=== PATIENT | female | born 1945 | race Caucasian/White ===

== ENCOUNTER 2022-02-12 07:58 | Inpatient (IN) | payer MEDICARE ==
[~2022-02-12] VITALS: Ht 162.6 cm; Wt 57.0 kg
[2022-02-12 08:40] LABS: BASO # 0.1 x10^3/uL (0.0-0.2); BASO % 1 % (0-3); EOS # 0.1 x10^3/uL (0.0-0.7); EOS % 1 % (0-3); HEMATOCRIT 44.5 % (36.0-47.0); HEMOGLOBIN 15.4 g/dL (12.0-15.5); LYMPH # 2.8 x10^3/uL (1.0-4.8); LYMPH % 29 % (24-48); MEAN CORPUSCULAR HEMOGLOBIN 32 pg (25-35); MEAN CORPUSCULAR HGB CONC 35 g/dL (31-37); MEAN CORPUSCULAR VOLUME 93 fL (79-100); MONO # 0.9 x10^3/uL (0.0-1.1); MONO % 9 % (0-9); NEUT % 61 % (31-73); PLATELET COUNT 284 x10^3/uL (140-400); RED BLOOD COUNT 4.77 x10^6/uL (3.50-5.40); RED CELL DISTRIBUTION WIDTH 13.7 % (11.5-14.5); WHITE BLOOD COUNT 9.8 x10^3/uL (4.0-11.0)
[2022-02-12 08:53] LABS: CALCIUM 9.6 mg/dL (8.5-10.1); CREATININE 0.9 mg/dL (0.6-1.0); GFR 60.9; POTASSIUM 3.3 mmol/L (3.5-5.1)
--- NOTE | 2022-02-12 08:56 | RAD ---
CT HEAD/BRAIN WO Date: 02/12/2022 8:30 AM Clinical Indication: left eye pain, transient vision loss Comparison: None. Technique: 5 mm axial tomographic images were obtained of the head without contrast. These were view ed on brain and bone windows. One or more of the following dose reduction techniques were utilized: A utomated exposure control (AEC), Adjustment of mA and/or kV according to patient size, Use of iterati ve reconstruction technique such as ASiR, CT scan done according to ALARA and image gently/image millan ly Findings: Moderate frontal lobe predominant cerebral volume loss. Mild nonspecific periventricular hypoattenuat ion, most commonly seen with chronic small vessel ischemic disease. Calcified atherosclerosis of the bilateral cavernous and paraclinoid internal carotid arteries and intracranial vertebral arteries. No intra- or extra-axial mass or fluid collection. No acute hemorrhage. The ventricles are normal in size, shape, and morphology. The hart-white matter junction is normal. The subarachnoid cisterns are patent. Partial empty sella. The visualized paranasal sinuses are normal. The visualized portions of the orbits and globes are no rmal. The mastoid air cells are clear. The seam press operator topogram shows no lytic lesion or fracture. Impression: No acute intracranial process. Moderate cerebral volume loss. Mild chronic small vessel ischemic disease. Electronically signed by: Madi Savage MD (02/12/2022 8:54 AM) [facility]
[2022-02-12 08:59] LABS: ALBUMIN 3.7 g/dL (3.4-5.0); C-REACTIVE PROTEIN 0.8 mg/L (0-3.3); MAGNESIUM 2.2 mg/dL (1.8-2.4); TOTAL BILIRUBIN 0.6 mg/dL (0.2-1.0); TOTAL PROTEIN 7.4 g/dL (6.4-8.2)
--- NOTE | 2022-02-12 09:06 | RAD ---
AP chest. HISTORY: Weakness AP view was taken of the chest. There is no prior study for comparison. There is thoracolumbar scolio sis. There is right apical density which could be an infiltrate or nodule, correlation with an old st udy would be of benefit or CT. Heart is normal in size. There is no pleural effusion. IMPRESSION: 1. Right apical density. Close follow-up or CT recommended. Electronically signed by: Etienne Boudreaux MD (02/12/2022 9:03 AM) [id number]
[2022-02-12 09:09] LABS: CREATINE KINASE 63 U/L (26-192)
[2022-02-12 09:57] LABS: BACTERIA,URINE 0 /HPF (0-FEW); RBC,URINE OCC /HPF (0-2); WBC,URINE 0 /HPF (0-4)
[2022-02-12] MEDS ORDERED: POTASSIUM BICARB 20 MEQ EFFERVESCENT TABLET. PO ONE (11:00)
[2022-02-12] MEDS ORDERED: ASPIRIN ENTERIC COATED 325 MG TABLET.DR. PO ONE (11:00)
--- NOTE | 2022-02-12 11:19 | PHYS DOC ---
Past Medical History Past Medical History: Hypertension Past Surgical History: No Surgical History Smoking Status: Never Smoker Alcohol Use: None Drug Use: None General Adult EDM: Chief Complaint: WEAKNESS/GENERALIZED HPI: HPI: 76-year-old female presents via EMS with report of sudden pain behind her left eye with transient vision loss which soon returned. Patient reports occurred after she bent down to pick something up. Patient reports symptoms occurred approximately 30 minutes prior to arrival. Reports upon EMS arrival symptoms had resolved. Denies any head trauma. Denies use of blood thinners. Denies fever or chills. Patient also reports concerned that her blood pressure was sig nificantly elevated after this episode. Reports it continued to increase after she checked it multiple times in a row. Review of Systems: Review of Systems: Constitutional: Denies fever or chills Eyes: Denies redness; reports transient vision loss and pain to left eye HENT: Denies nasal congestion or sore throat Respiratory: Denies cough or shortness of breath Cardiovascular: Denies chest pain or palpitations GI: Denies abdominal pain, nausea, or vomiting : Denies dysuria or hematuria Musculoskeletal: Denies back pain or joint pain Integument: Denies rash or skin lesions Neurologic: Denies headache, focal weakness or sensory changes Complete systems were reviewed and found to be within normal limits, except as documented in this note. Heart Score: C/O Chest Pain: N/A Current Medications: Current Medications Medications (Trade) Dose Ordered Sig/Lashon Start Time Stop Time Status Last Admin Dose Admin Acetaminophen (Tylenol) 650 mg PRN Q4HRS PRN 02/12/22 11:00 02/13/22 10:59 Aspirin (Ecotrin) 325 mg 1X ONCE 02/12/22 11:00 02/12/22 11:08 DC Potassium Bicarbonate (Potassium Effervescent Tablet) 40 meq 1X ONCE 02/12/22 11:00 02/12/22 11:08 DC Allergies: Allergies: Allergies Coded Allergies Type Severity Reaction Last Updated Verified No Known Drug Allergies 02/12/22 No Physical Exam: PE: Constitutional: Well developed, well nourished, no acute distress, non-toxic appearance HENT: Normocephalic, atraumatic Eyes: PERRL, EOMI, conjunctiva normal, no discharge, no photophobia Neck: Normal range of motion, no tenderness, supple Lungs & Thorax: No respiratory distress, equal chest rise and fall Abdomen: Soft, no tenderness Skin: Warm, dry, no erythema, no rash Extremities: No tenderness, ROM intact, no edema Neurologic: Alert and oriented X 3, normal motor function, normal sensory function, no focal deficits noted Psychologic: Affect normal, judgment normal Current Patient Data: Labs: Laboratory Tests Test 02/12/22 08:15 02/12/22 08:18 02/12/22 09:30 Glucose (Fingerstick) 131 mg/dL (70-99) H White Blood Count 9.8 x10^3/uL (4.0-11.0) Red Blood Count 4.77 x10^6/uL (3.50-5.40) Hemoglobin 15.4 g/dL (12.0-15.5) Hematocrit 44.5 % (36.0-47.0) Mean Corpuscular Volume 93 fL (79-100) Mean Corpuscular Hemoglobin 32 pg (25-35) Mean Corpuscular Hemoglobin Concent 35 g/dL (31-37) Red Cell Distribution Width 13.7 % (11.5-14.5) Platelet Count 284 x10^3/uL (140-400) Neutrophils (%) (Auto) 61 % (31-73) Lymphocytes (%) (Auto) 29 % (24-48) Monocytes (%) (Auto) 9 % (0-9) Eosinophils (%) (Auto) 1 % (0-3) Basophils (%) (Auto) 1 % (0-3) Neutrophils # (Auto) 6.0 x10^3/uL (1.8-7.7) Lymphocytes # (Auto) 2.8 x10^3/uL (1.0-4.8) Monocytes # (Auto) 0.9 x10^3/uL (0.0-1.1) Eosinophils # (Auto) 0.1 x10^3/uL (0.0-0.7) Basophils # (Auto) 0.1 x10^3/uL (0.0-0.2) Erythrocyte Sedimentation Rate 10 (0-25) Sodium Level 144 mmol/L (136-145) Potassium Level 3.3 mmol/L (3.5-5.1) L Chloride Level 105 mmol/L (98-107) Carbon Dioxide Level 28 mmol/L (21-32) Anion Gap 11 (6-14) Blood Urea Nitrogen 11 mg/dL (7-20) Creatinine 0.9 mg/dL (0.6-1.0) Estimated GFR (Cockcroft-Gault) 60.9 BUN/Creatinine Ratio 12 (6-20) Glucose Level 128 mg/dL (70-99) H Calcium Level 9.6 mg/dL (8.5-10.1) Magnesium Level 2.2 mg/dL (1.8-2.4) Total Bilirubin 0.6 mg/dL (0.2-1.0) Aspartate Amino Transferase (AST) 39 U/L (15-37) H Alanine Aminotransferase (ALT) 33 U/L (14-59) Alkaline Phosphatase 116 U/L (46-116) Creatine Kinase 63 U/L (26-192) Creatine Kinase MB (Mass) 0.9 ng/mL (0.0-3.6) Creatine Kinase MB Relative Index % (0-4) Troponin I High Sensitivity 9 ng/L (4-50) C-Reactive Protein, Quantitative 0.8 mg/L (0-3.3) Total Protein 7.4 g/dL (6.4-8.2) Albumin 3.7 g/dL (3.4-5.0) Albumin/Globulin Ratio 1.0 (1.0-1.7) Urine Collection Type Unknown Urine Color (Auto) Colorless Urine Turbidity Clear Urine pH (Auto) 7.0 (<5.0-8.0) Urine Specific [place] 1.003 (1.000-1.030) Urine Protein (Auto) Negative mg/dL (Negative) Urine Glucose (Auto)(UA) Negative mg/dL (Negative) Urine Ketones (Auto) Negative mg/dL (Negative) Urine Blood (Auto) Negative (Negative) Urine Nitrite Negative (Negative) Urine Bilirubin (Auto) Negative (Negative) Urine Urobilinogen (Auto) Normal mg/dL (Normal) Urine Leukocyte Esterase (Auto) Small (Negative) Urine RBC Occ /HPF (0-2) Urine WBC 0 /HPF (0-4) Urine Squamous Epithelial Cells Few /LPF Urine Bacteria 0 /HPF (0-FEW) Laboratory Tests 02/12/22 08:18 Laboratory Tests 02/12/22 08:18 Vital Signs: Vital Signs Date Time Temp Pulse Resp B/P (MAP) Pulse Ox O2 Delivery O2 Flow Rate FiO2 02/12/22 08:43 86 14 165/72 (103) 96 02/12/22 08:00 97.7 Room Air 97.7 EKG: EKG: @0905 NSR at 72bpm, NO ST elevation, QRS 84ms, QT/QTc 406/446ms Radiology/Procedures: Radiology/Procedures: PROCEDURE: CT HEAD WO CONTRAST CT HEAD/BRAIN WO Date: 02/12/2022 8:30 AM Clinical Indication: left eye pain, transient vision loss Comparison: None. Technique: 5 mm axial tomographic images were obtained of the head without contrast. These were viewed on brain and bone windows. One or more of the following dose reduction techniques were utilized: Automated exposure control (AEC), Adjustment of mA and/or kV according to patient size, Use of iterative reconstruction technique such as ASiR, CT scan done according to ALARA and image gently/image wisely Findings: Moderate frontal lobe predominant cerebral volume loss. Mild nonspecific periventricular hypoattenuation, most commonly seen with chronic small vessel i schemic disease. Calcified atherosclerosis of the bilateral cavernous and paraclinoid internal carotid arteries and intracranial vertebral arteries. No intra- or extra-axial mass or fluid collection. No acute hemorrhage. The ventricles are normal in size, shape, and morphology. The hart-white matter junction is normal. The subarachnoid cisterns are patent. Partial empty sella. The visualized paranasal sinuses are normal. The visualized portions of the orbits and globes are normal. The mastoid air cells are clear. The search and rescue officer topogram shows no lytic lesion or fracture. Impression: No acute intracranial process. Moderate cerebral volume loss. Mild chronic small vessel ischemic disease. Electronically signed by: Ian Savage MD (02/12/2022 8:54 AM) [facility] PROCEDURE: PORTABLE CHEST 1V AP chest. HISTORY: Weakness AP view was taken of the chest. There is no prior study for comparison. There is thoracolumbar scoliosis. There is right apical density which could be an infiltrate or nodule, correlation with an old study would be of benefit or CT. Heart is normal in size. There is no pleural effusion. IMPRESSION: 1. Right apical density. Close follow-up or CT recommended. Electronically signed by: Etienne Boudreaux MD (02/12/2022 9:03 AM) [id number] Course & Med Decision Making: Course & Med Decision Making Pertinent Labs and Imaging studies reviewed. (See chart for details) Patient presents with report of sudden pain behind left eye with transient vision loss which quickly resolved. Patient also reported concern for elevated blood pressure after taking it multiple times in a row. Patient's blood pressure stable upon arrival. NIHSS 0 upon arrival. Labs obtained and posted to chart. Hyperkalemia addressed. Patient also given aspirin. Blood pressure significantly improved during ED visit without intervention. Blood pressure elevation at home likely more stress/anxiety- induced. CXR with right apical opacity concerning for pulmonary nodule. Radiology recommendation for follow-up CT imaging. Patient reports she is aware of this finding as it has been seen in past. Reports history of smoking. A copy of CXR provided to patient with instruction to discuss with her doctor regarding future re-evaluation. Patient and family also request COVID testing. Reports nephew with positive test approximately 4 weeks ago. Rapid COVID and Influenza negative. Discussed admission versus close outpatient follow-up with patient and family. Decision given long family and patient opted for admission for further evaluation and treatment. Discussed with Dr. Lopez (PCP) who is in agreement with admission. Consult placed to Dr. Ray (neurology). Discussed findings and plan with patient and family, who acknowledge understanding and agreement. Marek Disclaimer: Marek Disclaimer: This electronic medical record was generated, in whole or in part, using a voice recognition dictation system. Departure Departure Impression: Primary Impression: TIA (transient ischemic attack) Additional Impressions: Abnormal chest x-ray Hypokalemia Disposition: ADMITTED INPATIENT Admitting Physician: Ian Lopez Condition: STABLE Referrals: IAN LOPEZ MD (PCP) NIHSS Stroke Scale NIH Stroke Scale: NIH Stroke Scale Response (Comments) Value Level of Consciousness: 0 Alert/Responsive 0 LOC Questions: 0 Answers both correctly 0 LOC Commands: 0 Performs both tasks 0 Best Gaze: 0 Normal 0 Visual: 0 No visual loss 0 Facial Palsy: 0 Normal, symmetrical 0 Motor - Left Arm 0 No drift 0 Motor - Right Arm 0 No drift 0 Motor - Left Leg 0 No drift 0 Motor: Right Leg 0 No drift 0 Limb Ataxia: 0 Absent 0 Sensory: 0 No loss 0 Best Language: 0 Normal 0 Dysathria: 0 Normal 0 Extinction and Inattention: 0 Normal 0 Total 0 SNELL,MILIND Candelaria DO February 12, 2022 11:18
[2022-02-12] MEDS: ACETAMINOPHEN 325 MG TABLET. PO PRN ×2 (11:32→21:25)
[2022-02-12 13:35] LABS: INFLUENZA A PATIENT NEGATIVE (NEGATIVE); INFLUENZA B PATIENT NEGATIVE (NEGATIVE)
[2022-02-12 16:41] VITALS: BP 149/67
[2022-02-12] MEDS ORDERED: TETR15DR73 OP (17:01)
[2022-02-12] MEDS ORDERED: OMEG-32 PO (17:01)
[2022-02-12] MEDS ORDERED: LISI20TA18 PO (17:01)
[2022-02-12] MEDS ORDERED: CRESTOR5 MG PO (17:01)
[2022-02-12] MEDS ORDERED: VIT1TABL34 PO (17:01)
[2022-02-12 19:29] VITALS: BP 124/58
--- NOTE | 2022-02-12 20:00 | NUR ---
Pt assisted to restroom and back to bed. Assessment completed vss poc explained pt denied pain at this time but c/o of a area above her left eye was nagging. Call placed to Dr. Lopez re: restarting pt home medications. Pt advise to call for standby assist to restroom will resume care and continue to monitor pt. Call light in reach.
[2022-02-12] MEDS ORDERED: POLYVINYL ALCOHOL 1.4% OPHTH SOLUTION 15ML BOTTLE. OU PRN (21:15)
[2022-02-12] MEDS: MULTIVITAMIN I-VITE TABLET. PO SCH (21:24)
[2022-02-12 23:07] VITALS: BP 119/66
[2022-02-13 04:30] VITALS: BP 164/75
[2022-02-13] MEDS: ACETAMINOPHEN 325 MG TABLET. PO PRN (04:38)
[2022-02-13 07:00] VITALS: BP 189/82
[2022-02-13] MEDS ORDERED: IOHEXOL 350 MG/ML 100 ML VIAL. IV ONE (07:30)
[2022-02-13] MEDS ORDERED: CONTRAST GIVEN. MC PRN (07:45)
[2022-02-13] MEDS ORDERED: OMEGA-3 FATTY ACIDS/FISH OIL 1,000 MG CAPSULE. PO SCH (09:00)
[2022-02-13] MEDS ORDERED: ATORVASTATIN CALCIUM 40 MG TABLET. PO SCH (09:00)
[2022-02-13] MEDS ORDERED: LISINOPRIL 20 MG TABLET PO SCH (09:00)
--- NOTE | 2022-02-13 09:55 | HP ---
DATE OF SERVICE: 02/13/2022 ADMIT DATE: 02/12/2022 CHIEF COMPLAINT: Left eye pain and visual loss. HISTORY OF PRESENT ILLNESS: A 76-year-old white female, patient of Dr. Maya, has a history of hypertension, no other significant vascular disease. She was at home, was normoactive. She had an abrupt onset of pain behind and above her left eye that will be sharp in nature and lasted about 2-3 minutes. This was accompanied shortly after that by what she described as a total visual loss to the left eye only that fully recovered a few minutes later. She has not had any preceding headaches or any other particular symptoms of any kind. ER evaluation showed normal CT scan and laboratory studies and normal sed rate. CT angiogram has been ordered and is pending at this time. PAST MEDICAL HISTORY: She takes lisinopril for hypertension. She is on a statin. No other significant medications. SOCIAL HISTORY: She is a nonsmoker, . Physically active, nondrinker. FAMILY HISTORY: Unremarkable. REVIEW OF SYSTEMS: No other recent visual changes, headaches, jaw claudication or others symptoms. OBJECTIVE: ENT: Left and right eye appeared to be normal. Temporal arteries are nontender. EOMs are full. The area above the eye feels normal. NECK: No bruits, nodes or thyroid enlargement. LUNGS: Clear. CARDIOVASCULAR: Regular rate. No tachycardia or murmur. ABDOMEN: Soft, benign, nontender. EXTREMITIES: Heberden's nodes and changes consistent with osteoarthritis, otherwise unremarkable. Pedal and radial pulses are good. NEUROLOGIC: Physiologic, nonfocal. Visual cueva and EOMs appear to be intact. ASSESSMENT: Abrupt onset of pain behind the left eye accompanied by visual loss that was transient in nature. This raises the question of ophthalmic artery occlusion that is likely embolic in nature, this was transient. Less likely rupture, giant cell arteritis with normal sed rate seem to preclude that, although she is on prednisone, low doses now. PLAN: We will start low dose aspirin and omeprazole for gastric protection. Pending CT angiogram to check her carotids. Neurology consultation as well. BRADEN/TEQUILA DONALDSON: Jose TID: [id number]
[2022-02-13] MEDS: MULTIVITAMIN I-VITE TABLET. PO SCH (10:04)
[2022-02-13 10:15] VITALS: BP 163/77
[2022-02-13 11:00] VITALS: BP 156/80
[2022-02-13] MEDS ORDERED: PANTOPRAZOLE 40 MG TABLET.DR. PO SCH (11:30)
--- NOTE | 2022-02-13 11:36 | NUR ---
NOTIFIED DR HADLEY OF PT HTN POST PO HOME MED BP ADMIN. NO NEW ORDERS RECEIVED. ALSO ASKED ABOUT IF AN ECHO WAS GOING TO BE ORDERED FOR PT, STATED IT CAN BE DONE OUTPT IF PT REQUIRING IT.
[2022-02-13] MEDS ORDERED: ASPIRIN CHEWABLE 81 MG TABLET. PO SCH (12:00)
[2022-02-13] MEDS ORDERED: ACETAMINOPHEN 325 MG TABLET. PO PRN (13:00)
--- NOTE | 2022-02-13 13:39 | PDOC2 ---
NEUROLOGY CONSULT Date of Service DOS: DATE: 02/13/22 TIME: 13:31 Reason for Consult Reason for Consult: headache, vision loss Referring Physician Referring Physician: Dr. Lopez (Dr. Gaytan) Source Source: Caregiver (Daughter), Chart review, Patient History of Present Illness History of Present Illness The patient is a 76-year-old right-handed female who had sudden onset of pain behind the left eye and vision loss in the left eye lasting a few moments. She was bending down to pick something up. She still has achy pain above the left eye. She does have a history of migraines. There is no history of stroke, seizure, or head injury. Blood pressure was up after the episode. She is feeling better today but still has some headache. She no longer has any visual symptoms. Past Medical History Cardiovascular: HTN Musculoskeletal: Osteoarthritis ENT: Other (macular degeneration) Past Surgical History Past Surgical History: Tubal Ligation, Hysterectomy, Other (for ulcer) Family History Family History: CAD Social History Social History No alcohol or tobacco, Current Medications Current Medications Current Medications Potassium Bicarbonate (Potassium Effervescent Tablet) 40 meq 1X ONCE PO Last administered on 02/12/22at 11:30; Start 02/12/22 at 11:00; Stop 02/12/22 at 11:08; Status DC Aspirin (Ecotrin) 325 mg 1X ONCE PO Last administered on 02/12/22at 11:31; Start 02/12/22 at 11:00; Stop 02/12/22 at 11:08; Status DC Acetaminophen (Tylenol) 650 mg PRN Q4HRS PRN PO FEVER > 100.3'F Last administered on 02/13/22at 04:38; Start 02/12/22 at 11:00; Stop 02/13/22 at 10:59; Status DC Lisinopril (Prinivil) 20 mg DAILY PO Last administered on 02/13/22at 08:10; Start 02/13/22 at 09:00 Glycerin/ Hypromellose/ Polyethylene (Artificial Tears) 1 drop PRN DAILY PRN OU DRY EYE; Start 02/12/22 at 21:15 Fish Oil (Fish Oil) 1,000 mg DAILY PO Last administered on 02/13/22at 10:04; Start 02/13/22 at 09:00 Atorvastatin Calcium (Lipitor) 40 mg DAILY PO Last administered on 02/13/22at 10:04; Start 02/13/22 at 09:00 Multivitamins/ Minerals (I-Janine) 1 tab BID PO Last administered on 02/13/22at 10:04; Start 02/12/22 at 21:30 Iohexol (Omnipaque 350 Mg/ml) 75 ml 1X ONCE IV Last administered on 02/13/22at 09:40; Start 02/13/22 at 07:30; Stop 02/13/22 at 07:37; Status DC Info (CONTRAST GIVEN -- Rx MONITORING) 1 each PRN DAILY PRN MC SEE COMMENTS; Start 02/13/22 at 07:45; Stop 02/15/22 at 07:44 Aspirin (Aspirin Chewable) 81 mg DAILYWBKFT PO Last administered on 02/13/22at 12:05; Start 02/13/22 at 12:00 Pantoprazole Sodium (Protonix) 40 mg DAILYAC PO Last administered on 02/13/22at 10:04; Start 02/13/22 at 11:30 Acetaminophen (Tylenol) 650 mg PRN Q4HRS PRN PO MILD PAIN / TEMP > 100.3'F; Start 02/13/22 at 13:00 Active Scripts Active Reported Eye Drops (Tetrahydrozoline Hcl) 15 Ml Drops 15 Ml OP PRN PRN Preservision Areds Tablet (Vit A/Vit C/Vit E/Zinc/Copper) 1 Each Tablet 2 Tab PO BID 30 Days [place]-3 1,000 Mg Softgel ([place]-3 Fatty Acids/Fish Oil) 1 Each Capsule 1 Each PO DAILY Lisinopril 20 Mg Tablet 1 Tab PO DAILY Crestor (Rosuvastatin Calcium) 5 Mg Tablet 10 Mg PO DAILY Allergies Allergies: Coded Allergies: No Known Drug Allergies (Unverified , 02/12/22) ROS Review of System Negative for fever, chills, weight loss, shortness of breath, chest pain, indigestion, hematochezia, melena, and dysuria. Full 14-point review of systems is negative. Physical Exam Physical Examination General: Well-developed, well-nourished white female in no acute distress HEENT: Normocephalic andatraumatic. Temporal arteriespulsatile and nontender.Fundoscopic exam unremarkable Neck: Supple without bruit, no meningismus Musculoskeletal: Stability:see neurologic. Gait exam:see neurologic. Tone:see neurologic.Strength:see neurologic. Neurological: Mental Status:intact, orientation, memory, attention span/concentration, language, fund of knowledge normal. Cranial Nerves:Pupils equal and reactive to light, extraocular movements areintact, visual cueva are full to confrontation. Facial sensation is normal. There is no facial asymmetry. Vestibulo-ocular reflex is intact. Palate elevates and tongue protrudes in midline. All other cranial related problems are negative except as mentioned before.Reflexes:2+ and symmetric with flexor plantar responses. Motor:5/5 strength with normal tone and bulk. Coordination:Finger-nose finger and vvgn-hd-yvwb testing are normal. Rapid alternating movements and fine finger movements are intact. Gait:Normal, including tandem. Sensory:Normal pinprick, vibration, light touch, proprioception. Vitals VITALS Vital Signs Date Time Temp Pulse Resp B/P (MAP) Pulse Ox O2 Delivery O2 Flow Rate FiO2 02/13/22 10:15 70 163/77 (105) 02/13/22 08:00 Room Air 02/13/22 07:00 98.1 18 92 98.1 Labs Labs Laboratory Tests Test 02/12/22 08:15 02/12/22 08:18 02/12/22 09:30 02/12/22 11:26 Glucose (Fingerstick) 131 mg/dL (70-99) White Blood Count 9.8 x10^3/uL (4.0-11.0) Red Blood Count 4.77 x10^6/uL (3.50-5.40) Hemoglobin 15.4 g/dL (12.0-15.5) Hematocrit 44.5 % (36.0-47.0) Mean Corpuscular Volume 93 fL (79-100) Mean Corpuscular Hemoglobin 32 pg (25-35) Mean Corpuscular Hemoglobin Concent 35 g/dL (31-37) Red Cell Distribution Width 13.7 % (11.5-14.5) Platelet Count 284 x10^3/uL (140-400) Neutrophils (%) (Auto) 61 % (31-73) Lymphocytes (%) (Auto) 29 % (24-48) Monocytes (%) (Auto) 9 % (0-9) Eosinophils (%) (Auto) 1 % (0-3) Basophils (%) (Auto) 1 % (0-3) Neutrophils # (Auto) 6.0 x10^3/uL (1.8-7.7) Lymphocytes # (Auto) 2.8 x10^3/uL (1.0-4.8) Monocytes # (Auto) 0.9 x10^3/uL (0.0-1.1) Eosinophils # (Auto) 0.1 x10^3/uL (0.0-0.7) Basophils # (Auto) 0.1 x10^3/uL (0.0-0.2) Erythrocyte Sedimentation Rate 10 (0-25) Sodium Level 144 mmol/L (136-145) Potassium Level 3.3 mmol/L (3.5-5.1) Chloride Level 105 mmol/L (98-107) Carbon Dioxide Level 28 mmol/L (21-32) Anion Gap 11 (6-14) Blood Urea Nitrogen 11 mg/dL (7-20) Creatinine 0.9 mg/dL (0.6-1.0) Estimated GFR (Cockcroft-Gault) 60.9 BUN/Creatinine Ratio 12 (6-20) Glucose Level 128 mg/dL (70-99) Calcium Level 9.6 mg/dL (8.5-10.1) Magnesium Level 2.2 mg/dL (1.8-2.4) Total Bilirubin 0.6 mg/dL (0.2-1.0) Aspartate Amino Transf (AST/SGOT) 39 U/L (15-37) Alanine Aminotransferase (ALT/SGPT) 33 U/L (14-59) Alkaline Phosphatase 116 U/L (46-116) Creatine Kinase 63 U/L (26-192) Creatine Kinase MB (Mass) 0.9 ng/mL (0.0-3.6) Creatine Kinase MB Relative Index % (0-4) Troponin I High Sensitivity 9 ng/L (4-50) C-Reactive Protein, Quantitative 0.8 mg/L (0-3.3) Total Protein 7.4 g/dL (6.4-8.2) Albumin 3.7 g/dL (3.4-5.0) Albumin/Globulin Ratio 1.0 (1.0-1.7) Urine Collection Type Unknown Urine Color (Auto) Colorless Urine Turbidity Clear Urine pH (Auto) 7.0 (<5.0-8.0) Urine Specific [place] 1.003 (1.000-1.030) Urine Protein (Auto) Negative mg/dL (Negative) Urine Glucose (Auto)(UA) Negative mg/dL (Negative) Urine Ketones (Auto) Negative mg/dL (Negative) Urine Blood (Auto) Negative (Negative) Urine Nitrite Negative (Negative) Urine Bilirubin (Auto) Negative (Negative) Urine Urobilinogen (Auto) Normal mg/dL (Normal) Urine Leukocyte Esterase (Auto) Small (Negative) Urine RBC Occ /HPF (0-2) Urine WBC 0 /HPF (0-4) Urine Squamous Epithelial Cells Few /LPF Urine Bacteria 0 /HPF (0-FEW) Coronavirus (COVID-19)(PCR) Not detected (NOT DETECTD) Influenza Type A Antigen Negative (NEGATIVE) Influenza Type B Antigen Negative (NEGATIVE) SARS-CoV-2 Antigen (Rapid) Negative (NEGATIVE) Images Images CT HEAD/BRAIN WO Date: 02/12/2022 8:30 AM Clinical Indication: left eye pain, transient vision loss Comparison: None. Technique: 5 mm axial tomographic images were obtained of the head without contrast. These were viewed on brain and bone windows. One or more of the following dose reduction techniques were utilized: Automated exposure control (AEC), Adjustment of mA and/or kV according to patient size, Use of iterative reconstruction technique such as ASiR, CT scan done according to ALARA and image gently/image wisely Findings: Moderate frontal lobe predominant cerebral volume loss. Mild nonspecific periventricular hypoattenuation, most commonly seen with chronic small vessel ischemic disease. Calcified atherosclerosis of the bilateral cavernous and paraclinoid internal carotid arteries and intracranial vertebral arteries. No intra- or extra-axial mass or fluid collection. No acute hemorrhage. The ventricles are normal in size, shape, and morphology. The hart-white matter junction is normal. The subarachnoid cisterns are patent. Partial empty sella. The visualized paranasal sinuses are normal. The visualized portions of the orbits and globes are normal. The mastoid air cells are clear. The disability counselor topogram shows no lytic lesion or fracture. Impression: No acute intracranial process. Moderate cerebral volume loss. Mild chronic small vessel ischemic disease. Assessment/Plan Assessment/Plan Impression: Sudden onset of monocular vision loss and headache, unlikely be transient ischemic attack, and aneurysmal bleed needed to be ruled out yesterday, I did order a CT angiogram which has been done this morning, but the results are not available and the PACS system is not working. Most likely this is a migraine headache. She has a history of migraines. She no longer has any visual symptoms, just some headache which is better with Tylenol. Her neurological examination is nonfocal. There is no meningismus. There is no sign of stroke or transient ischemic attack. Note normal ESR Recommendations: I have requested a stat read on the CT angiogram If this is negative, okay to discharge Excedrin as needed Follow-up with me in 2 or 3 weeks if still no better. Thank you for letting me help with the patient's care. ZAKIYA COOK MD February 13, 2022 13:39
[2022-02-13] MEDS ORDERED: ASA/APAP/CAFFEINE 250/250/65MG TABLET. PO PRN (13:45)
[2022-02-13] MEDS ORDERED: PRED20TA PO (14:02)
--- NOTE | 2022-02-13 14:57 | RAD ---
CTA HEAD AND NECK W/WO CONTRAST History: TIA, vision loss left eye Technique: After bolus of intravenous contrast, volumetric CT data acquisition was acquired of the he ad and neck. Multiplanar reconstruction images to include MIP and 3-D reconstruction images are submi tted. Any determination of stenosis is based on NASCET criteria. Comparison: CT head 02/12/2022 Findings: Angiogram neck: Aortic arch: Normal caliber three-vessel arch. Common carotid arteries: No stenosis, occlusion or dissection. Internal carotid arteries: No stenosis, occlusion or dissection. External carotid arteries: Patent Vertebral arteries: No stenosis, occlusion or dissection. Angiogram head: ICA: No stenosis, occlusion or aneurysm. MCA: No stenosis, occlusion or aneurysm. TUCKER: No stenosis, occlusion or aneurysm. INDUSTRIAL SAFETY AND HEALTH TECHNICIAN: No stenosis, occlusion or aneurysm. Basilar artery: No stenosis, occlusion or aneurysm. Distal vertebral arteries: No stenosis, occlusion or aneurysm. Other: Severe emphysematous changes in the lung apices with partially calcified right apical masslike area o f scarring measuring 3.2 x 1.5 cm Heterogeneous thyroid with 1.5 cm left-sided nodule. Degenerative changes in the cervical spine Impression: 1. No significant arterial stenosis, occlusion or aneurysm within the head or neck. 2. Masslike area of scarring in the right lung apex with partial calcification measuring up to 3.2 c m. This is superimposed on severe emphysematous change. Recommend correlation with prior imaging if a vailable. Malignancy is not excluded. Consider baseline noncontrast chest CT and short interval 3 mon th follow-up noncontrast CT of the chest. 3. Heterogeneous thyroid with 1.5 cm left thyroid nodule. Recommend routine outpatient thyroid ultra sound for further evaluation. Exposure: One or more of the following individualized dose reduction techniques were utilized for thi s examination: 1. Automated exposure control 2. Adjustment of the mA and/or kV according to patient size 3. Use of iterative reconstruction technique. Electronically signed by: Timmy Garzon MD (02/13/2022 2:55 PM) [id number]
[2022-02-13] MEDS ORDERED: ASPI-886 PO (15:14)
[2022-02-13] MEDS ORDERED: PANT40TA77 PO (15:15)
--- NOTE | 2022-02-13 15:55 | NUR ---
Discharge Note: EMANUEL RAMIREZ [address] Discharge instructions and discharge home medications reviewed with Patient and a copy given. All questions have been answered and understanding verbalized. Educated pt on follow ups and s/s to notify provider/call 911. Pt states understanding. No IV in place at time of discharge. All belongings packed up and sent home with pt. Pt in stable condition at time of discharge. Pt safely wheeled down to private vehicle and left with family.
--- NOTE | 2022-02-16 07:52 | EKG ---
[facility] [address] [place] [address] Test Date: 2022-02-12 Test Time: 09:05:57 Pat Name: EMANUEL RAMIREZ Department: Room: 4 Gender: F [place] Line Attendant: : 1945 Requested By: MILIND SNELL Order Number: [id number] Reading MD: Ron Carlton MD Measurements Intervals Grant Rate: 72 P: 64 WI: 142 QRS: 57 QRSD: 84 T: 70 QT: 406 QTc: 446 Interpretive Statements SINUS RHYTHM Electronically Signed On 02-16-2022 11:29:04 CDT by Ron Carlton MD
== END 2022-02-13 15:45 | disposition home or self-care (01) | DRG 103 ==
LOC: ER 07:58 → ED HOLD 10:59 → 6 SOUTH 15:25
PROVIDERS: ADMIT Family Medicine; ATTEND Family Medicine
DX: G43.909 Migraine, unspecified, not intractable, without status migrainosus (principal); E87.6 Hypokalemia; I10 Essential (primary) hypertension; M31.6 Other giant cell arteritis; X50.1XXA Overexertion from prolonged static or awkward postures, initial encounter; Z82.49 Family history of ischemic heart disease and other diseases of the circulatory system; Z90.710 Acquired absence of both cervix and uterus; M19.90 Unspecified osteoarthritis, unspecified site; Z20.822 Contact with and (suspected) exposure to COVID-19
CPT/HCPCS: 36415; 70450; 70496; 70498; 71045; 80053; 81001; 82553; 82962; 83735; 84484; 85025; 85651; 86140; 87086; 87428; 93005; Q9967; U0003; 99285-25; G0378